=== PATIENT | male | born 2000 | race Two or more races ===

== ENCOUNTER 2021-12-06 01:09 | Emergency (ER) | payer SELFPAY ==
[~2021-12-06] VITALS: Ht 157.5 cm; Wt 54.5 kg
[2021-12-06 01:45] VITALS: BP 122/70
--- NOTE | 2021-12-06 02:22 | PHYS DOC ---
Past Medical History Past Surgical History: No Surgical History Smoking Status: Current Every Day Smoker Alcohol Use: Occasionally General Adult EDM: Chief Complaint: ABDOMINAL PAIN HPI: HPI: Patient is a 21 year old male who presents with abdominal pain, nausea, vomiting, diarrhea. He reports subjective fevers and chills, no documented fever. Symptoms began yesterday. He reports he feels better now that he is here. He denies hematemesis, melena or hematochezia. He denies urinary symptoms. He denies chest pain or dyspnea. He does report having a mild cough and mild headache. He admits to drinking alcohol relatively routinely, he drank alcohol yesterday and earlier today. No recent travel, hospitalization or recent antibiotic use reported. No previous abdominal surgeries. Review of Systems: Review of Systems: Constitutional: Subjective fevers and chills, no documented fever Eyes: Denies change in visual acuity. [] HENT: Denies nasal congestion or sore throat. [] Respiratory: Occasional dry cough. No dyspnea. Cardiovascular: Denies chest pain or edema. [] GI: Generalized abdominal pain, nausea, vomiting, diarrhea. Denies melena or hematochezia or hematemesis : Denies urinary symptoms Musculoskeletal: Denies back pain or joint pain. [] Integument: Denies rash. [] Neurologic: Reports a mild headache. No thunderclap headache. Denies numbness, tingling, focal motor weakness, syncope, fall, head injury Psychiatric: Denies depression or anxiety. [] Heart Score: C/O Chest Pain: No Risk Factors: Risk Factors: DM, Current or recent (<one month) smoker, HTN, HLP, family history of CAD, obesity. Risk Scores: Score 0 - 3: 2.5% MACE over next 6 weeks - Discharge Home Score 4 - 6: 20.3% MACE over next 6 weeks - Admit for Clinical Observation Score 7 - 10: 72.7% MACE over next 6 weeks - Early Invasive Strategies Physical Exam: PE: Constitutional: Well developed, well nourished, no acute distress, non-toxic appearance. [] HENT: Normocephalic, atraumatic, oropharynx patent and clear, mucous membranes are moist. No exudate or erythema. Eyes: PERRL, EOMI, conjunctiva normal, no discharge. No scleral icterus. Neck: Normal range of motion, no tenderness, supple, no stridor. No meningismus. Cardiovascular:Heart rate regular rhythm, +2 radial and +2 dorsalis pedis pulses Lungs & Thorax: Bilateral breath sounds clear to auscultation [] Abdomen: Abdomen soft, nondistended, minimal tenderness to palpation in the periumbilical area, no guarding, no rebound, no rigidity, no palpable masses organomegaly, no palpable pulsatile mass. No CVA tenderness. No flank abdominal ecchymoses. Nonsurgical abdomen. Skin: Warm, dry, no erythema, no rash. No jaundice. Back: No tenderness, no CVA tenderness. [] Extremities: No tenderness, no cyanosis, no clubbing, ROM intact, no edema. [] Neurologic: Alert and oriented X 3, normal motor function, normal sensory function, no focal deficits noted. [] Psychologic: Affect normal, judgement normal, mood normal. [] Current Patient Data: Vital Signs: Vital Signs Date Time Temp Pulse Resp B/P (MAP) Pulse Ox O2 Delivery O2 Flow Rate FiO2 12/06/21 01:45 97.5 104 16 122/70 (87) 96 Room Air 97.5 EKG: EKG: [] Radiology/Procedures: Radiology/Procedures: IMAGING REPORT Signed PATIENT: HUI JUSTICE ACCOUNT: [id number] : 2000 LOCATION: ER AGE: 21 SEX: M EXAM STATUS: REG ER ORD. PHYSICIAN: AMILCAR REVELES DO REASON: abd pain, n/v/diarrhea, fever, OMNI 300 75 ML IV PROCEDURE: CT ABD PELV W/ IV CONTRST ONLY CT ABDOMEN+PELVIS W History: Abdominal pain, nausea vomiting, diarrhea. Comparison: None. Technique: CT of the abdomen and pelvis with intravenous contrast. Findings: The lung bases are clear. The liver, gallbladder, pancreas, spleen, adrenal glands, and kidneys are unremarkable. There is wall thickening at the gastric fundus. No evidence of small bowel obstruction. Some central loops of small bowel with prominent mucosal folds. Normal appendix. Colon is within normal limits. The bladder is well distended and within normal limits. Unremarkable prostate. No intra-abdominal free air or free fluid. Vasculature is within normal limits. Soft tissues are unremarkable. Soft tissues and osseous structures are unremarkable. Impression: 1. Mild gastric wall thickening and a few loops of small bowel with thickened londono may represent gastroenteritis. ------ Exposure: One or more of the following individualized dose reduction techniques were utilized for this examination: 1. Automated exposure control 2. Adjustment of the mA and/or kV according to patient size 3. Use of iterative reconstruction technique. Electronically signed by: Torsten Phillips MD (12/06/2021 4:04 AM) [facility] DICTATED and SIGNED BY: TORSTEN PHILLIPS MD DATE: 12/06/21 0356 Course & Med Decision Making: Course & Med Decision Making Pertinent Labs and Imaging studies reviewed. (See chart for details) Patient is given IV fluids, IV Zofran, IV Toradol. He is resting comfortably. He is now tolerating oral fluids well. No further vomiting or diarrhea produced here. I discussed the findings, differential diagnosis and plan of care with him. Home care instructions were provided. He should drink plenty of clear fluids, avoid spicy, greasy or salty foods. He should avoid alcohol use as well. Return precautions are given. Dragon Disclaimer: DragVeriShow Disclaimer: This electronic medical record was generated, in whole or in part, using a voice recognition dictation system. Departure Departure Impression: Primary Impression: Nausea vomiting and diarrhea Additional Impressions: Generalized abdominal pain Alcohol use Disposition: 01 HOME / SELF CARE / HOMELESS Condition: STABLE Patient Instructions: Alcohol Intoxication, Viral Gastroenteritis Additional Instructions: Eat a bland diet, drink clear fluids, avoid salty, spicy or greasy foods. Avoid alcohol use. Use the prescription medicine as needed for nausea and vomiting symptoms. Return to the ER for more severe abdominal pain, vomiting blood, uncontrolled vomiting, dehydration or other concerns. Scripts Ondansetron Hcl (ONDANSETRON HCL) 4 Mg Tablet 1 TAB PO PRN Q6HRS for vomiting, #20 TAB 1 Refill Prov: AMILCAR REVELES DO 12/06/21 AMILCAR REVELES DO Dec 06, 2021 02:22
[2021-12-06 03:09] LABS: BASO % 0 % (0-3); EOS % 0 % (0-3); HEMATOCRIT 43.4 % (39.0-53.0); HEMOGLOBIN 14.9 g/dL (13.0-17.5); LYMPH % 9 % (24-48); MEAN CORPUSCULAR HEMOGLOBIN 30 pg (25-35); MEAN CORPUSCULAR HGB CONC 34 g/dL (31-37); MEAN CORPUSCULAR VOLUME 87 fL (79-100); MONO # 0.7 x10^3/uL (0.0-1.1); MONO % 6 % (0-9); NEUT # 10.3 x10^3/uL (1.8-7.7); NEUT % 86 % (31-73); PLATELET COUNT 251 x10^3/uL (140-400); RED BLOOD COUNT 4.99 x10^6/uL (4.30-5.70); RED CELL DISTRIBUTION WIDTH 14.1 % (11.5-14.5)
[2021-12-06] MEDS ORDERED: KETOROLAC 15 MG/ML VIAL. IVP ONE (03:09)
[2021-12-06] MEDS ORDERED: ONDANSETRON PF 4 MG/2 ML VIAL. IVP ONE (03:09)
[2021-12-06] MEDS ORDERED: IV NORMAL SALINE 1000ML BAG 1,000 ML IV ONE (03:09)
[2021-12-06 03:17] LABS: CALCIUM 8.1 mg/dL (8.5-10.1); CREATININE 0.7 mg/dL (0.7-1.3); GFR 143.8
[2021-12-06 03:23] LABS: ALBUMIN 4.3 g/dL (3.4-5.0); ALBUMIN/GLOBULIN RATIO 1.3 (1.0-1.7); TOTAL BILIRUBIN 0.3 mg/dL (0.2-1.0); TOTAL PROTEIN 7.7 g/dL (6.4-8.2)
[2021-12-06 03:36] LABS: INFLUENZA A PATIENT NEGATIVE (NEGATIVE); INFLUENZA B PATIENT NEGATIVE (NEGATIVE)
[2021-12-06] MEDS ORDERED: CONTRAST GIVEN. MC PRN (03:45)
[2021-12-06] MEDS ORDERED: IOHEXOL 300 MG/ML 100ML VIAL. IV ONE (03:45)
--- NOTE | 2021-12-06 04:06 | RAD ---
CT ABDOMEN+PELVIS W History: Abdominal pain, nausea vomiting, diarrhea. Comparison: None. Technique: CT of the abdomen and pelvis with intravenous contrast. Findings: The lung bases are clear. The liver, gallbladder, pancreas, spleen, adrenal glands, and kidneys are u nremarkable. There is wall thickening at the gastric fundus. No evidence of small bowel obstruction. Some central loops of small bowel with prominent mucosal folds. Normal appendix. Colon is within normal limits. The bladder is well distended and within normal limits. Unremarkable prostate. No intra-abdominal antonio e air or free fluid. Vasculature is within normal limits. Soft tissues are unremarkable. Soft tissues and osseous structures are unremarkable. Impression: 1. Mild gastric wall thickening and a few loops of small bowel with thickened londono may represent ga stroenteritis. ------ Exposure: One or more of the following individualized dose reduction techniques were utilized for thi s examination: 1. Automated exposure control 2. Adjustment of the mA and/or kV according to patient size 3. Use of iterative reconstruction technique. Electronically signed by: Torsten Mclaughlin MD (12/06/2021 4:04 AM) [place]
[2021-12-06] MEDS ORDERED: ONDA-84 PO (05:14)
== END 2021-12-06 06:05 | disposition home or self-care (01) ==
LOC: ER 01:09
DX: R11.2 Nausea with vomiting, unspecified (principal); R19.7 Diarrhea, unspecified; Z20.822 Contact with and (suspected) exposure to COVID-19; R10.84 Generalized abdominal pain; R50.9 Fever, unspecified; F17.200 Nicotine dependence, unspecified, uncomplicated; F10.20 Alcohol dependence, uncomplicated; Y90.9 Presence of alcohol in blood, level not specified
CPT/HCPCS: 36415; 74177; 80053; 83605; 83690; 85025; 87428; 96361; 96374; 96375; 99285; G0480; J1885; J2405; J7030; Q9967